=== PATIENT | female | born 1950 | race Caucasian/White ===

== ENCOUNTER 2017-02-04 21:43 | Inpatient (IN) ==
[2017-02-04 22:11] LABS: MANUAL DIFF NEEDED? NO
[2017-02-04 22:13] LABS: BASO% 0.3 % (0.0-0.8); EOS# 0.09 X1000 (0.0-0.7); EOS% 0.6 % (0.0-10.0); HEMATOCRIT 41.6 % (37.0-47.0); HEMOGLOBIN 13.9 g/dL (12.0-16.0); IMM GRAN# 0.13 X1000 (0.0-0.04); IMM GRAN% 0.9 % (0.0-0.5); LYMPH# 2.85 X1000 (1.2-3.4); LYMPH% 19.9 % (20.5-51.1); MCH 27.1 PG (27-31); MCHC 33.4 g/dL (33-37); MCV 81.1 FL (81-99); MONO# 1.13 X1000 (0.11-0.59); MONO% 7.9 % (1.7-9.3); MPV 9.1 FL (7.4-10.4); NEUT% 70.4 % (42.2-75.2); PLT 423 X1000 (130-400); RBC 5.13 XMIL (4.2-5.4)
[2017-02-04 22:36] LABS: URINE CULTURE NEEDED? NO; URINE MICRO REVIEW NEEDED? NO; URINE SOURCE CATH
[2017-02-04 22:42] LABS: AGAP 17; ALBUMIN 4.1 g/dL (3.5-5.0); ALKALINE PHOSPHATASE 88 U/L (32-104); BUN 14 mg/dL (8-22); CALCIUM 9.9 mg/dL (8.8-10.2); CHLORIDE 96 mmol/L (98-107); COSMO 270; GOT 11 U/L (10-30); GPT 10 U/L (10-36); POTASSIUM 4.3 mmol/L (3.5-5.1); SODIUM 135 mmol/L (136-145); TCO2 22 mmol/L (25-35); TOTAL BILIRUBIN 0.13 mg/dL (0.20-1.00); TOTAL PROTEIN 6.5 g/dL (6.3-8.3)
[2017-02-04 22:42] LABS: BILIRUBIN URINE NEGATIVE (NEGATIVE); BLOOD URINE NEGATIVE (NEGATIVE); COLOR STRAW; GLUCOSE URINE NEGATIVE (NEGATIVE); LEUKOCYTES URINE NEGATIVE (NEGATIVE); NITRITE URINE NEGATIVE (NEGATIVE); PROTEIN URINE NEGATIVE (NEGATIVE); SP GRAVITY URINE 1.006; TURBIDITY URINE CLEAR (CLEAR); UROBILINOGEN URINE NORMAL (NORMAL)
[2017-02-04 22:43] LABS: UR EPITHELIAL CELLS <10 /HPF (<10); URINE BACTERIA NEGATIVE /HPF; URINE RBC <10 /HPF (<10); URINE WBC <10 /HPF (<10)
[2017-02-04 22:52] LABS: UR AMPHETAMINES QUAL NONE DETECTED (NONE DETECT); UR BARBITUATES QUAL NONE DETECTED (NONE DETECT); UR BENZODIAZEPIN QUAL NONE DETECTED (NONE DETECT); UR CANNABINOIDS QUAL NONE DETECTED (NONE DETECT); UR COCAINE QUAL NONE DETECTED (NONE DETECT); UR METHADONE QUAL NONE DETECTED (NONE DETECT); UR OPIATES QUAL NONE DETECTED (NONE DETECT); UR OXYCODONE QUAL NONE DETECTED (NONE DETECT); UR PCP QUAL NONE DETECTED (NONE DETECT)
[2017-02-04 23:00] LABS: FREE T4 1.72 ng/dL (0.93-1.70)
[2017-02-04 23:11] LABS: ACETAMINOPHEN < 1.2 ug/mL (10-30)
[2017-02-05] MEDS ORDERED: DUONEB (A & A) INH PRN (01:28)
[2017-02-05] MEDS ORDERED: SODIUM CHLORIDE 0.9% INJ SCH (01:28)
[2017-02-05] MEDS ORDERED: ZOFRAN IV PRN (01:28)
[2017-02-05 01:58] LABS: HEMOGLOBIN A1C 6.3 % (4.8-6.0)
[2017-02-05 02:47] LABS: CK INDEX 0.6 (0.0-2.5); CK-MB 2.08 ng/mL (0.0-5.0)
[2017-02-05] MEDS: PROTONIX IV SCH (04:30)
[2017-02-05] MEDS: NS 1,000 ML IV SCH ×3 (04:30→16:33)
[2017-02-05] MEDS: LOVENOX SUBQ SCH (08:24)
[2017-02-05 09:25] LABS: MANUAL DIFF NEEDED? NO
[2017-02-05 09:35] LABS: BASO% 0.2 % (0.0-0.8); EOS# 0.03 X1000 (0.0-0.7); EOS% 0.2 % (0.0-10.0); HEMATOCRIT 35.3 % (37.0-47.0); HEMOGLOBIN 11.6 g/dL (12.0-16.0); IMM GRAN# 0.15 X1000 (0.0-0.04); IMM GRAN% 1.2 % (0.0-0.5); LYMPH% 11.3 % (20.5-51.1); MCH 27.7 PG (27-31); MCHC 32.9 g/dL (33-37); MCV 84.2 FL (81-99); MONO# 0.88 X1000 (0.11-0.59); MONO% 7.1 % (1.7-9.3); MPV 8.8 FL (7.4-10.4); PLT 339 X1000 (130-400); RBC 4.19 XMIL (4.2-5.4)
[2017-02-05 10:22] LABS: ALBUMIN 3.6 g/dL (3.5-5.0); CALCIUM 8.6 mg/dL (8.8-10.2); POTASSIUM 4.2 mmol/L (3.5-5.1); TOTAL BILIRUBIN 0.26 mg/dL (0.20-1.00); TOTAL PROTEIN 6.2 g/dL (6.3-8.3)
[2017-02-05 10:43] LABS: CK INDEX 0.4 (0.0-2.5); CK-MB 2.8 ng/mL (0.0-5.0)
[2017-02-05] MEDS: HUMALOG SUBQ SCH ×3 (12:03→21:19)
[2017-02-05] MEDS ORDERED: ATIVAN PO PRN (15:47)
[2017-02-05 18:00] LABS: CK INDEX 0.5 (0.0-2.5); CK-MB 3.06 ng/mL (0.0-5.0)
[2017-02-05] MEDS ORDERED: MELATONIN PO SCH (21:00)
[2017-02-05] MEDS ORDERED: DESYREL PO SCH (21:00)
[2017-02-06] MEDS: PROTONIX IV SCH (00:27)
[2017-02-06 04:29] LABS: MANUAL DIFF NEEDED? NO
[2017-02-06 04:38] LABS: BASO% 0.3 % (0.0-0.8); EOS# 0.19 X1000 (0.0-0.7); EOS% 2.2 % (0.0-10.0); HEMATOCRIT 33.9 % (37.0-47.0); HEMOGLOBIN 11.1 g/dL (12.0-16.0); IMM GRAN% 1.2 % (0.0-0.5); LYMPH# 1.43 X1000 (1.2-3.4); LYMPH% 16.5 % (20.5-51.1); MCH 27.3 PG (27-31); MCHC 32.7 g/dL (33-37); MCV 83.5 FL (81-99); MONO% 6.9 % (1.7-9.3); MPV 8.8 FL (7.4-10.4); NEUT% 72.9 % (42.2-75.2); PLT 309 X1000 (130-400); RBC 4.06 XMIL (4.2-5.4)
[2017-02-06] MEDS: NS 1,000 ML IV SCH (04:45)
[2017-02-06 05:00] LABS: AGAP 12; BUN 15 mg/dL (8-22); CALCIUM 8.7 mg/dL (8.8-10.2); CHLORIDE 99 mmol/L (98-107); COSMO 275; POTASSIUM 3.9 mmol/L (3.5-5.1); SODIUM 137 mmol/L (136-145); TCO2 26 mmol/L (25-35)
[2017-02-06] MEDS: LOVENOX SUBQ SCH (05:56)
[2017-02-06] MEDS: HUMALOG SUBQ SCH ×3 (06:14→16:35)
[2017-02-06 11:00] LABS: CK INDEX 1.1 (0.0-2.5); CK-MB 4.8 ng/mL (0.0-5.0)
[2017-02-06 16:12] VITALS: BP 135/81
== END 2017-02-06 18:37 ==
LOC: ED 21:43 → EDIPHOLD 02-05 00:40 → SUATTDRO 02-05 00:40 → ICU 02-05 20:31
PROVIDERS: ATTEND Internal Medicine